=== PATIENT | female | born 1975 | race Asian ===

== ENCOUNTER → 2024-01-28 10:06 | Outpatient (REF) | payer OTHER, SELFPAY | LOC: HWRAD 10:06 | PROVIDERS: ATTENDING PHYSICIAN Family Medicine | DX: R19.09 Other intra-abdominal and pelvic swelling, mass and lump (principal) | CPT/HCPCS: 76882 ==

== ENCOUNTER → 2024-03-28 16:20 | Outpatient (REF) | payer OTHER, SELFPAY | LOC: RAD 16:20 | PROVIDERS: ATTENDING PHYSICIAN Obstetrics & Gynecology; FAMILY PHYSICIAN Family Medicine | DX: N93.9 Abnormal uterine and vaginal bleeding, unspecified (principal) | CPT/HCPCS: 76830; 76856 ==

== ENCOUNTER 2024-07-21 05:48 | Day surgery (SDC) | payer OTHER, SELFPAY ==
[2024-07-12 12:48] VITALS: BMI 31.4
[2024-07-12 14:22] LABS: % Basophils 0.4 % (0-2); % Eosinophils 1.1 % (0-6); % Immature Granulocytes 0.4 % (0-0.5); % Monocytes 6.8 % (1.7-9.3); % Neutrophils 64.3 % (42.2-75.2); Absolute Eosinophils 0.1 10^3/uL (0-0.7); Absolute Monocytes 0.5 10^3/uL (0.1-0.6); Absolute Neutrophils 4.7 10^3/uL (1.4-6.5); Hemoglobin 13.3 g/dL (12.0-16.0); Mean Corp Hgb Conc. 32.4 g/dL (33.0-37.0); Mean Corpuscular Hgb 27.8 pg (27.0-31.0); Mean Corpuscular Volume 85.8 fL (81.0-99.0); Mean Platelet Volume 9.5 fL (7.4-10.4); Nucleated Red Blood Cells % 0 %; Platelet Count 283 10^3/uL (130-400); Red Blood Cell Count 4.78 10^6/uL (4.20-5.40); Red Cell Dist. Width 14.9 % (11.5-14.5); White Blood Cell Count 7.4 10^3/uL (4.8-10.8)
[2024-07-12 14:58] LABS: Beta HCG Quantitative < 2.39 mIU/ml
[2024-07-21] VITALS (11 sets, daily range): BP systolic 81–148; BP diastolic 40–97; BMI 31.4
[2024-07-21] MEDS: TYLENOL 1000 MG PO (07:10)
[2024-07-21] MEDS: NORMOSOL-R/PLASMALYTE-A 1000 IV (07:17)
--- NOTE | 2024-07-21 08:00 | W.SUR.PREOP ---
Pre-Operative Surgical Note
-
I have examined this patient prior to the performance of the scheduled procedure.
The patient's condition is unchanged from the time of the current History and
Physical and the patient is able to undergo the scheduled procedure.
--- NOTE | 2024-07-21 08:40 | W.IMMPOSTOP ---
Surgical Immed Post Op Note
-
Primary Surgeon: Sofia Moseley DO
Assisting Surgeon: None
Pre-op Diagnosis: Menorrhagia, abnormal uterine bleeding, uterine fibroid
Post-op Diagnosis: Same
Procedure Performed: Diagnostic hysteroscopy D&C
Anesthesia Type: MAC IV sedation Anesthesiologist: Dr. Mcguire
Specimen / Cultures: 1. endocervical curetting 2. Endometrial curettings
Estimated Blood Loss: 5 ml
Complications: none
Operative Findings: Uterus sounded to 8 cm, bilateral tubal ostia seen.
Fluid deficit: 80ml NSS
Counts correct times 2.
Stable to recovery
== END 2024-07-21 10:30 | disposition home or self-care (01) ==
LOC: SDS 05:48
PROVIDERS: ATTENDING PHYSICIAN Obstetrics & Gynecology; FAMILY PHYSICIAN Family Medicine
DX: D25.9 Leiomyoma of uterus, unspecified (principal); N92.0 Excessive and frequent menstruation with regular cycle; N93.8 Other specified abnormal uterine and vaginal bleeding
CPT/HCPCS: 58558; 88305; 36415; 84702; 85025; 86850; 86900; 86901

== ENCOUNTER → 2025-04-25 15:13 | Outpatient (REF) | payer OTHER, SELFPAY | LOC: HWRAD 15:13 | PROVIDERS: ATTENDING PHYSICIAN Nurse Practitioner Adult Health | DX: R05.3 Chronic cough (principal) | CPT/HCPCS: 71046 ==

== ENCOUNTER → 2025-05-01 08:22 | Outpatient (REF) | payer OTHER, SELFPAY | LOC: HWRAD 08:22 | PROVIDERS: ATTENDING PHYSICIAN Obstetrics & Gynecology Gynecology; FAMILY PHYSICIAN Family Medicine | DX: N93.9 Abnormal uterine and vaginal bleeding, unspecified (principal) | CPT/HCPCS: 76830; 76856 ==

== ENCOUNTER → 2025-05-14 10:25 | Outpatient (REF) | payer OTHER, SELFPAY | LOC: WDC 10:25 | PROVIDERS: ATTENDING PHYSICIAN Obstetrics & Gynecology; FAMILY PHYSICIAN Family Medicine | DX: N95.1 Menopausal and female climacteric states (principal); Z12.31 Encounter for screening mammogram for malignant neoplasm of breast; R92.343 Mammographic extreme density, bilateral breasts | CPT/HCPCS: 77063; 77067; 77080 ==